=== PATIENT | male | born 1980 | race Caucasian/White ===

== ENCOUNTER 2021-12-08 02:13 | Emergency (ER) | payer OTHER ==
[2021-12-08] MEDS ORDERED: Dextrose 5 %-0.45 % NaCl 1,000 ML ONE (02:34)
[2021-12-08] MEDS ORDERED: Multivit, Adult Inj 10 ML VIAL ONE (02:34)
[2021-12-08] MEDS ORDERED: Sodium Chloride 0.9% 0 ML ONE (02:34)
[2021-12-08] MEDS ORDERED: Thiamine HCl 200 MG/2 ML VIAL ONE (02:34)
[2021-12-08 02:38] LABS: Hemoglobin 15.2 g/dL (14.0-18.0); Mean Corpuscular HGB CONC 32.4 g/dL (32.0-36.0); Mean Corpuscular Hemoglobin 31.8 pg (27.0-31.0); Mean Corpuscular Volume 98.1 fL (78.0-98.0); Mean Platelet Volume 6.5 fL (7.4-10.4); Platelet Count 289 thou/uL (130-400); RBC Distribution Width 11.6 % (11.5-14.5); Red Blood Cell (RBC) Count 4.77 mill/uL (4.70-6.10); White Blood Cell (WBC) Count 8.6 thou/uL (4.8-10.8)
[2021-12-08 02:46] LABS: ALT (SGPT) 25 U/L (8-55); AST (SGOT) 19 U/L (5-34); Albumin 4.1 g/dL (3.5-5.0); Alkaline Phosphatase 66 U/L (40-110); Anion Gap 16 mmol/L (10-20); BUN (Urea Nitrogen) 12 mg/dL (8.9-20.6); Bilirubin, Total 0.4 mg/dL (0.2-1.2); CK (CPK) 95 U/L (30-200); Calc. Creatinine Clearance 0 mL/min (70-130); Carbon Dioxide 23 mmol/L (22-29); Chloride 106 mmol/L (98-107); Eosinophils 1 % (0-10); Estimated GFR 115; Globulin 2.7 g/dL (2.4-3.5); Glucose 100 mg/dL (70-105); Lipase 73 U/L (8-78); Lymphocytes 24 % (21-51); Monocytes 13 % (0-10); Neutrophil 62 % (42-75); Potassium 3.6 mmol/L (3.5-5.1); Protein, Total 6.8 g/dL (6.0-8.3); Sodium 141 mmol/L (136-145)
[2021-12-08 02:48] LABS: #Basophils 0.1 thou/uL (0.0-0.2); #Eosinphils 0.1 thou/uL (0.0-0.7); #Lymphocytes 2.6 thou/uL (1.20-3.40); #Monocytes 0.6 thou/uL (0.11-0.59); #Neutrophils 5.2 thou/uL (1.40-6.50); %Basophils 0.8 % (0.0-1.0); %Eosinophils 0.7 % (0.0-10.0); %Lymphocytes 30.3 % (21.0-51.0); %Monocytes 7.5 % (0.0-10.0); %Neutrophils 60.7 % (42.0-75.0)
[2021-12-08 02:51] LABS: MDiff Complete? YES
[2021-12-08] MEDS ORDERED: Iopamidol 370 76% 100 ML VIAL ONE (09:00)
== END 2021-12-08 04:30 | disposition home or self-care (01) ==
LOC: NAV ERS 02:13
DX: S80.12XA Contusion of left lower leg, initial encounter (principal); S30.1XXA Contusion of abdominal wall, initial encounter; S00.411A Abrasion of right ear, initial encounter; F10.129 Alcohol abuse with intoxication, unspecified; V89.2XXA Person injured in unspecified motor-vehicle accident, traffic, initial encounter
CPT/HCPCS: 70450; 71260; 72125; 74177; 80053; 82550; 83690; 85025; 96365; G0390; J3411; J7042; J7050; Q9967